=== PATIENT | male | born 1985 | race Caucasian/White ===

== ENCOUNTER → 2016-09-23 | Outpatient (CLI) | payer MEDICARE, OTHER | END | disposition home or self-care (01) | LOC: LABMAIN 19:35 | PROVIDERS: ATTEND Psychiatry & Neurology Neurology | DX: R56.9 Unspecified convulsions (principal) | CPT/HCPCS: 36415; 80164 ==

== ENCOUNTER 2017-11-03 21:12 | Emergency (ER) | payer MEDICARE, OTHER ==
[2017-11-03] MEDS ORDERED: DIPH,PERTUS(ACELL)TETVAC-LF 0.5 ML VIAL IM ONE (22:13)
--- NOTE | 2017-11-03 22:46 | ED ---
General Adult HPI - General Chief complaint: Wound/Laceration Stated complaint: finger lac Time Seen by Provider: 11/03/17 22:24 Source: patient, RN notes reviewed Mode of arrival: ambulatory Limitations: no limitations - History of Present Illness Initial comments: 32-year-old male presents to the emergency department for a chief complaint of finger laceration to the left fifth digit distal phalanx. This occurred about one hour ago when patient was using a knife to cut potatoes. Patient denies any other injury or laceration. Patient states his tetanus is up-to-date as he just had to get one. Patient has no other complaints at this time including shortness of breath, chest pain, abdominal pain, nausea or vomiting, headache, or visual changes. - Related Data Home Medications Medication Instructions Recorded Confirmed Divalproex [Depakote] 1,000 mg PO DAILY 04/09/14 04/09/14 Previous Rx's Medication Instructions Recorded Ibuprofen [Motrin] 600 mg PO Q6HR PRN #20 tab 04/09/14 Sulfamethox-Tmp 800-160Mg [Bactrim 2 each PO Q12HR #56 tab 04/09/14 DS 800-160 mg] Allergies Allergy/AdvReac Type Severity Reaction Status Date / Time No Known Allergies Allergy Verified 11/03/17 21:19 Review of Systems ROS Statement: Those systems with pertinent positive or pertinent negative responses have been documented in the HPI. ROS Other: All systems not noted in ROS Statement are negative. Past Medical History Additional Past Medical History / Comment(s): epilepsy History of Any Multi-Drug Resistant Organisms: None Reported Past Surgical History: No Surgical Hx Reported Past Psychological History: No Psychological Hx Reported Smoking Status: Current every day smoker Past Alcohol Use History: None Reported Past Drug Use History: None Reported General Exam Limitations: no limitations General appearance: alert, in no apparent distress Head exam: Present: atraumatic, normocephalic, normal inspection Eye exam: Present: normal appearance ENT exam: Present: normal exam, mucous membranes moist Neck exam: Present: normal inspection, full ROM. Absent: tenderness, meningismus, lymphadenopathy Respiratory exam: Present: normal lung sounds bilaterally. Absent: respiratory distress, wheezes, rales, rhonchi, stridor Cardiovascular Exam: Present: regular rate, normal rhythm, normal heart sounds. Absent: systolic murmur, diastolic murmur, rubs, gallop, clicks Extremities exam: Present: full ROM (Full range of motion of the left fifth finger including flexion and extension of the MCP PIP and DIP joints.), tenderness (Tenderness to the laceration area along the distal phalanx fifth digit.), normal capillary refill (Refill less than 2 seconds and radial pulse 2 + in the left upper extremity including the fifth digit.), other (There is a laceration extending from the distal nailbed of the fifth digit around to the lateral palmar aspect of the fifth digit about 1 cm in length.) Course Vital Signs 11/03/17 11/03/17 21:17 22:54 Temperature 98.6 F 98 F Pulse Rate 76 72 Respiratory 81 H 18 Rate Blood Pressure 146/84 151/89 O2 Sat by Pulse 97 96 Oximetry Procedures - Procedures Initial comment: Body area: Distal phalanx left fifth finger Laceration length: 1 cm Foreign bodies: no foreign bodies Tendon involvement: none Nerve involvement: none Vascular damage: no Anesthesia: Digital block Local anesthetic: 4 mL 1% lidocaine Preparation: Patient was prepped and draped in the usual sterile fashion. Distal aspect of finger nail was removed. Irrigation solution: Sterile water Irrigation method:sterile water jet lavage Skin closure:5-0 Ethilon using sterile technique Number of sutures: 7 Technique: interupted Dressing: antibiotic ointment/ gauze Patient tolerance: Patient tolerated the procedure well with no immediate complications. Medical Decision Making - Medical Decision Making 32-year-old male presents to the emergency department for a chief complaint of left fifth digit laceration one hour ago. Patient was using a knife to cut potatoes. Patient is up-to-date on tetanus. On exam there is a 1 cm laceration extending from the distal nailbed of the fifth digit around the lateral aspect of the finger and into the palmar aspect of the distal phalanx fifth digit. Patient has full range of motion of the fifth digit. Capillary refill less than 2 seconds. X-ray of the left fifth digit shows soft tissue deformity at the tip of the little finger. No fracture or dislocation. No sign of foreign body. Wound was irrigated with 1 L of sterile water and cleaned with iodine. It was then sutured with sterile technique using 7 simple interrupted sutures. Patient was educated to monitor for signs of infection and return if these or any other worsening symptoms occur. He will follow up with primary care in 1-2 days. He will return in 7-10 days to have sutures removed. Disposition Clinical Impression: Laceration Disposition: HOME SELF-CARE Condition: Good Instructions: Care For Your Stitches (ED), Laceration (ED) Additional Instructions: Please monitor for signs of infection such as spreading redness, streaking redness, drainage or fever and return if those occur. Return to the emergency department if you've any other worsening symptoms or concerns. Follow-up with primary care in 1-2 days. Return in 7-10 days to have sutures removed. Take Motrin and Tylenol for pain. Rest ice and elevate the hand. Is patient prescribed a controlled substance at d/c from ED?: No Referrals: Jono Luque MD [STAFF PHYSICIAN] - 1-2 days Time of Disposition: 23:22
--- NOTE | 2017-11-03 22:46 | XR ---
EXAMINATION TYPE: XR finger LT DATE OF EXAM: 11/03/2017 COMPARISON: NONE HISTORY: Laceration injury TECHNIQUE: 3 views FINDINGS: There is soft tissue deformity at the tip of the little finger consistent with a laceration . I see no fracture nor dislocation. There is no sign of a foreign body. IMPRESSION: Soft tissue deformity.
[2017-11-03 22:55] VITALS: BP 151/89; PULSE 72; RESP 18; TEMP 98
== END 2017-11-03 23:30 | disposition home or self-care (01) ==
LOC: EC 21:12
DX: S61.317A Laceration without foreign body of left little finger with damage to nail, initial encounter (principal); G40.909 Epilepsy, unspecified, not intractable, without status epilepticus; F17.200 Nicotine dependence, unspecified, uncomplicated; Z79.899 Other long term (current) drug therapy; W26.0XXA Contact with knife, initial encounter; Y93.G1 Activity, food preparation and clean up
CPT/HCPCS: 11730; 12001; 90471; 90715; 99283

== ENCOUNTER → 2020-05-26 | Outpatient (CLI) | payer MEDICARE, OTHER | END | disposition home or self-care (01) | LOC: LABWHC1 15:21 | PROVIDERS: ATTEND Otolaryngology | DX: R42 Dizziness and giddiness (principal); R53.83 Other fatigue | CPT/HCPCS: 36415; 82306; 86038; 86618 ==

== ENCOUNTER → 2020-07-30 | Outpatient (CLI) | payer MEDICARE, OTHER | END | disposition home or self-care (01) | LOC: LABWHC1 11:15 | PROVIDERS: ATTEND Psychiatry & Neurology Pain Medicine | DX: Z51.81 Encounter for therapeutic drug level monitoring (principal) | CPT/HCPCS: 36415; 80164 ==

== ENCOUNTER → 2024-09-26 | Outpatient (CLI) | payer BC ==
--- NOTE | 2024-09-27 09:27 | MR ---
INDICATION: Patient age:Male; 39 years old; Reason for study: G93.0; H. COMPARISON: CT brain 02/18/2011. TECHNIQUE: Multi planar, multi sequence imaging was performed through the brain. The patient was then given 10.5 cc of Gadobutrol intravenously and multi planar, T1 fat-saturation images were obtained. FINDINGS: The altamirano-white junctions and basal cisterns appear unremarkable. Redemonstration of a thin-walled sim ple appearing intraventricular cyst within the posterior body of the right lateral ventricle. Stable size measuring 3.6 x 2.2 cm (series 401, image 21). There is associated deviation of the posterior as pect of the left septum pellucidum to the left. No hydrocephalus. Age-appropriate cerebral parenchyma l volume. Diffusion-weighted imaging shows no evidence of restricted diffusion to suggest acute/subac nikolski infarct. Intracranial arterial flow voids are maintained. Midline structures show no abnormality. Few foci of high T2 signal intensity are seen within the supratentorial subcortical white matter. Ex amples include a right frontal lobe subcortical 3.8 mm lesion (series 601, image 28). Approximately 1 0 lesions. The susceptibility weighted images do not reveal any evidence for micro-hemorrhage. After administration of gadolinium, no abnormal enhancement is seen. The bone marrow signal is within normal limits. The paranasal sinuses and globes are unremarkable. IMPRESSION: 1. No evidence of acute/subacute infarct or abnormal enhancement. 2. Stable size of simple appearing intraventricular cyst from prior CT. 3. Minimal nonenhancing nonspecific white matter changes. Etiologies include chronic migraines, demye linating disease, small vessel ischemic disease versus other etiologies. [facility], , 09/27/2024 9:25 AM
== END | disposition home or self-care (01) ==
LOC: RADMRIMAIN 20:15
PROVIDERS: ATTEND Psychiatry & Neurology Neurology
DX: R90.82 White matter disease, unspecified (principal); G93.0 Cerebral cysts
CPT/HCPCS: 70553; A9585